=== PATIENT | male | born 1985 | race Caucasian/White ===

== ENCOUNTER 2020-02-26 13:40 | Emergency (ER) | payer BC ==
[2020-02-26 13:46] VITALS: BP 122/71; PULSE 71; TEMP 98.1; BMI 22.4
[2020-02-26] MEDS ORDERED: predniSONE 20 MG TABLET (UD) PO ONE (14:18)
[2020-02-26] MEDS ORDERED: predniSONE 20 MG TABLET (UD) ONE (14:21)
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
== END 2020-02-26 15:25 | disposition home or self-care (01) ==
LOC: FER 13:40 → SUPCPDRO 13:40 → FER 15:25
DX: L23.7 Allergic contact dermatitis due to plants, except food (principal)
CPT/HCPCS: 99283-25